=== PATIENT | male | born 1945 | race Caucasian/White ===

== ENCOUNTER → 2019-02-25 12:47 | Outpatient (CLI) | payer MEDICARE | END | disposition home or self-care (01) | LOC: D.RAD 12:47 | PROVIDERS: ATTEND Legal Medicine | DX: R13.12 Dysphagia, oropharyngeal phase (principal) ==

== ENCOUNTER 2019-10-28 13:21 | Emergency (ER) | payer MEDICARE ==
[~2019-10-28] VITALS: Ht 172.7 cm; Wt 77.3 kg
[2019-10-28 13:40] VITALS: Ht 172.7 cm; Wt 77.3 kg
[2019-10-28] MEDS ORDERED: PLAVIX75 MG PO (13:41)
[2019-10-28] MEDS ORDERED: METOPROLOL TART25 MG PO (13:42)
[2019-10-28] MEDS ORDERED: LISINOPRIL10 MG PO (13:43)
[2019-10-28] MEDS ORDERED: VITAMIN B-1250 MG PO (13:43)
[2019-10-28] MEDS ORDERED: CYMBALTA20 MG PO (13:43)
[2019-10-28] MEDS ORDERED: FISH OIL 1,0001 CA1 PO (13:44)
[2019-10-28] MEDS ORDERED: VITAMIN D1000 UNIT PO (13:44)
[2019-10-28 14:30] LABS: BASOPHILS 0.5 % (0-2); EOSINOPHILS 2.7 % (0-7); HEMATOCRIT 46.8 % (42.0-54.0); HEMOGLOBIN 15.8 g/dL (13.5-17.5); IMMATURE GRANULOCYTES 0.2 % (0-5); LYMPHOCYTES 33.7 % (15-50); MCH 30.4 pg (26.0-34.0); MCHC 33.8 g/dL (31.0-37.0); MCV 90.2 fL (80.0-100.0); MEAN PLATELET VOLUME 9.4 fL (7.4-10.4); MONOCYTES 5.1 % (2-11); NEUTROPHILS 57.8 % (40-80); PLATELET COUNT 181 10x3/uL (130-400); RBC 5.19 10x6/uL (4.20-6.10); RDW 14.2 % (11.5-14.5); WBC 8.3 10x3/uL (4.8-10.8)
[2019-10-28 14:40] LABS: CALC OSMOLALITY 281 mosm/kg (275-300); CALCIUM 9.3 mg/dL (8.5-10.1); CARBON DIOXIDE 29.7 mmol/L (21.0-32.0); CHLORIDE - SERUM 106 mmol/L (98-107); CREATININE - SERUM 1.7 mg/dL (0.6-1.3); GLUCOSE 110 mg/dL (74-106); POTASSIUM - SERUM 4.1 mmol/L (3.5-5.1); SODIUM 140 mmol/L (136-145); UREA NITROGEN 18 mg/dL (7-18); eGFR NON AFRICAN AMERICAN 42 mL/min (90-120)
[2019-10-28 14:51] LABS: APTT 33.1 SECONDS (22.8-39.4); INR 0.99 (0.85-1.17)
[2019-10-28 14:56] LABS: ALBUMIN 3.8 g/dL (3.4-5.0); ALKALINE PHOSPHATASE 83 U/L (30-120); ALT (SGPT) 16 U/L (10-68); BILIRUBIN - TOTAL 0.57 mg/dL (0.2-1.3); CKMB 0.7 U/L (0.0-3.6); CREATINE KINASE 97 UL (21-232); MAGNESIUM - SERUM 2.2 mg/dL (1.8-2.4); PROTEIN - SERUM 7.5 g/dL (6.4-8.2); THYROID STIMULATING HORMONE 1.08 uIU/mL (0.36-3.74)
[2019-10-28 15:02] LABS: TROPONIN-I < 0.017 ng/mL (0.000-0.060)
[2019-10-28 15:12] LABS: BILIRUBIN NEGATIVE (NEGATIVE); GLUCOSE NEGATIVE (NEGATIVE); KETONE NEGATIVE (NEGATIVE); NITRITE NEGATIVE (NEGATIVE); UROBILINOGEN NORMAL (NORMAL)
[2019-10-28 15:13] LABS: RED CELLS - URINE OCC /hpf (0-5); WHITE CELLS - URINE 0-5 /hpf (NEGATIVE)
[2019-10-28 15:14] LABS: BACTERIA FEW /hpf (NEGATIVE)
[2019-10-28 23:40] VITALS: BP 169/74
== END 2019-10-28 23:40 | disposition other institution (70) ==
LOC: D.ER 13:21
PROVIDERS: Family Medicine
DX: I63.9 Cerebral infarction, unspecified (principal); G81.91 Hemiplegia, unspecified affecting right dominant side; I10 Essential (primary) hypertension

== ENCOUNTER 2020-06-27 12:52 | Emergency (ER) | payer OTHER ==
[~2020-06-27] VITALS: Ht 172.7 cm; Wt 78.6 kg
[~2020-06-27 12:52] MED LIST: CYMBALTA20 MG PO; FISH OIL 1,0001 CA1 PO; LISINOPRIL10 MG PO; METOPROLOL TART25 MG PO; PLAVIX75 MG PO; VITAMIN B-1250 MG PO; VITAMIN D1000 UNIT PO
[2020-06-27 13:17] VITALS: Ht 172.7 cm; Wt 78.6 kg
[2020-06-27] MEDS ORDERED: ZOLOFT50 MG PO (13:22)
[2020-06-27] MEDS ORDERED: LIPITOR40 MG PO (13:23)
[2020-06-27 13:48] LABS: BASOPHILS 0.4 % (0-2); EOSINOPHILS 1.9 % (0-7); HEMATOCRIT 44.9 % (42.0-54.0); IMMATURE GRANULOCYTES 0.4 % (0-5); LYMPHOCYTE ABS# 2.65 10x3/uL (1.32-3.57); LYMPHOCYTES 32.3 % (15-50); MCH 30.4 pg (26.0-34.0); MCHC 33.4 g/dL (31.0-37.0); MCV 90.9 fL (80.0-100.0); MEAN PLATELET VOLUME 9.1 fL (7.4-10.4); MONOCYTES 6.7 % (2-11); NEUTROPHIL ABS# 4.79 10x3/uL (1.78-5.38); NEUTROPHILS 58.3 % (40-80); PLATELET COUNT 181 10x3/uL (130-400); RBC 4.94 10x6/uL (4.20-6.10); RDW 13.8 % (11.5-14.5); WBC 8.2 10x3/uL (4.8-10.8)
[2020-06-27 13:59] LABS: ANION GAP 6.7 mmol/L (8-16); CALCIUM 8.9 mg/dL (8.5-10.1); CARBON DIOXIDE 31.1 mmol/L (21.0-32.0); CREATININE - SERUM 1.4 mg/dL (0.6-1.3); POTASSIUM - SERUM 3.8 mmol/L (3.5-5.1)
[2020-06-27 14:05] LABS: ALBUMIN 3.5 g/dL (3.4-5.0); BILIRUBIN - TOTAL 0.48 mg/dL (0.2-1.3)
[2020-06-27] MEDS ORDERED: CLONIDINE HCL0.1 MG PO (17:19)
[2020-06-27 18:55] VITALS: BP 156/95
== END 2020-06-27 18:57 | disposition home or self-care (01) ==
LOC: D.ER 12:52
PROVIDERS: Emergency Medicine
DX: I10 Essential (primary) hypertension (principal); Z86.73 Personal history of transient ischemic attack (TIA), and cerebral infarction without residual deficits